=== PATIENT | female | born 1935 | race Caucasian/White ===

== ENCOUNTER 2022-04-21 07:56 | Emergency (ER) | payer MEDICARE, SELFPAY ==
--- NOTE | 2022-04-21 08:04 | DI.RAD.S_ITS ---
PROCEDURE: XR CHEST 1V INDICATIONS: fall TECHNIQUE: One view of the chest was acquired. COMPARISON: [facility], CR, XR HIP W PEL IF DONE LT 2V, 04/21/2022, 8:23. [facility], CT, CT HEAD/BRAIN WO CON, 04/21/2022, 8:16. FINDINGS: Surgical changes and devices: Right shoulder arthroplasty hardware is seen. Lungs and pleura: On this supine examination, no large pneumothorax or large pleural effusions are seen. No focal areas of lung consolidation are seen. Low lung volumes are noted. This causes a crowded appearance to the lung markings and limits evaluation. Mediastinum: Mediastinal contours appear normal. Heart size is normal. Atherosclerotic calcification of the aortic arch is noted. Bones and chest wall: No suspicious bony lesions. No displaced rib fracture can be seen. Age-appropriate bony degenerative changes are seen. Overlying soft tissues appear unremarkable. IMPRESSION: Limited portable chest examination, without a significant cardiopulmonary abnormality identified. No displaced fracture is seen on this single view study. Dictated by: Vincent Dia M.D. on 04/21/2022 at 8:48 Approved by: Vincent Dia M.D. on 04/21/2022 at 8:49
--- NOTE | 2022-04-21 08:04 | DI.CT.S_ITS ---
PROCEDURE: CT HEAD/BRAIN WO CON INDICATIONS: falling TECHNIQUE: Noncontrast 4.5 mm thick angled axial sections acquired from the foramen magnum to the vertex, with coronal and sagittal reformats. For radiation dose reduction, the following was used: automated exposure control, adjustment of mA and/or kV according to patient size. COMPARISON: None. FINDINGS: Image quality: Excellent. CSF spaces: Basal cisterns are patent. No extra-axial fluid collections. Ventricles are normal in size and shape. Brain: Moderate global cerebral volume loss and chronic microvascular ischemic changes. Skull and face: Right cochlear implant. Calvarium and visualized facial bones are intact, without suspicious lesions. Sinuses: Visualized sinuses and mastoids are clear. IMPRESSION: No acute intracranial abnormality. Dictated by: Mike Wood M.D. on 04/21/2022 at 8:31 Approved by: Mike Wood M.D. on 04/21/2022 at 8:35
--- NOTE | 2022-04-21 08:09 | ED_ITS ---
HPI - Fall General Chief Complaint: Fall Stated Complaint: GLF Time Seen by Provider: 04/21/22 08:01 History of Present Illness HPI Narrative: Patient is 86-year-old female extremely hard of hearing lives in a correction like situation. Apparently she fell this morning she fell last week as well. However today she is having left leg pain and shortening. She apparently has atrial fibrillation and takes aspirin. Staff members did not see her fall she is not able to provide any history. Related Data Allergies Allergy/AdvReac Type Severity Reaction Status Date / Time bee venom protein (honey bee) Allergy Verified 04/21/22 08:20 codeine Allergy Verified 04/21/22 08:20 Sulfa (Sulfonamide Allergy Verified 04/21/22 08:20 Antibiotics) Review of Systems Review of Systems Narrative: Unable to obtain Patient History Social History Smoking Status: Unknown if ever smoked Exam Initial Vital Signs Initial Vital Signs: Vital Signs Temperature 97.8 F 04/21/22 08:20 Pulse Rate 66 04/21/22 08:20 Respiratory Rate 18 04/21/22 08:20 Blood Pressure 159/70 H 04/21/22 08:20 Pulse Oximetry 92 04/21/22 08:20 Oxygen Delivery Method 04/21/22 08:20 GENERAL: Awake alert thin 86-year-old female HEENT: Head atraumatic,EOMI, pupils reactive, face symmetric, moist mucous membr anes NECK: Supple CARDIOVASCULAR: Systolic murmur regular rate RESPIRATORY: Breath sounds equal bilaterally, no wheezes rales or rhonchi. ABDOMEN: Soft, nontender. Normoactive bowel sounds all 4 quadrants. No guarding or rebound. EXTREMITIES: Normal range of motion, no clubbing or edema. Neurovascularly intact Left hip pain left leg is shortened distal pedal pulse is felt NEUROLOGICAL: Moving extremities SKIN: Multiple contusions all over specifically on her right hip Course Orders Ordered: ED Orders 04/21/22 09:25 BNP [NT-proBNP (BNP-Adult 18+)] Stat CBC Auto Diff [Complete Blood Count AUTO DIFF] Stat CMP [Comprehensive Metabolic Panel] Stat 04/21/22 10:35 CBC Auto Diff [Complete Blood Count AUTO DIFF] Stat PT [Prothrombin Time INR] Stat PTT [Partial Thromboplastin Time] Stat 04/21/22 10:40 UA Complete [Urinalysis and Microscopic] Stat 04/21/22 12:36 ABG [Arterial Blood Gas] Stat 04/21/22 13:04 COVID19 -Nasal RAPID/Pre-Proc Stat Discontinued Medications Acetaminophen (Acetaminophen 325 Mg Tablet) 650 mg PO NOW ONE Stop: 04/21/22 10:52 Last Admin: 04/21/22 11:12 Dose: 650 mg Documented By: BAIRON Potassium Chloride (Potassium Chloride 20 Meq/15 Ml Udc) 40 meq PO NOW ONE Stop: 04/21/22 09:58 Last Admin: 04/21/22 10:28 Dose: 40 meq Documented By: AMU Vital Signs Vital signs: Vital Signs - 8 hr 04/21/22 10:51 04/21/22 11:00 04/21/22 11:30 Pulse Rate 81 87 80 Pulse Oximetry 98 93 99 04/21/22 12:00 04/21/22 12:30 Pulse Rate 78 82 Pulse Oximetry 92 MDM - Fall Lab Data Result diagrams: 04/21/22 10:35 04/21/22 09:25 Labs: Lab Results 04/21/22 04/21/22 04/21/22 Range/Units 09:25 09:25 09:25 WBC 7.2 (4.5-11.0) X10^3/uL RBC 3.55 L (4.0-5.2) X10^6/uL Hgb 9.9 L (12.0-16.0) g/dL Hct 29.8 L (36-46) % MCV 84.1 (80-100) fL MCH 27.8 (26-34) PG MCHC 33.1 (30-36) % RDW 16.8 H (11.6-14.8) % Plt Count TNP Neut % (Auto) 76.5 H (50-75) % Lymph % (Auto) 16.4 L (25-40) % [place] % (Auto) 5.6 (3-14) % Eos % (Auto) 1.2 L (2-4) % Baso % (Auto) 0.3 (0-2) % Neut # (Auto) 5500 (1004-8294) /uL Lymph # (Auto) 1200 (6330-0823) /uL [place] # (Auto) 400 (0-900) /uL Eos # (Auto) 100 (0-450) /uL Baso # (Auto) 0 (0-100) /uL RBC Morphology See below Anisocytosis 1+ H PT (10.1-12.7) SECONDS INR (0.9-1.3) APTT (26.4-36.2) SECONDS Sodium 137 (137-145) mmol/L Potassium 2.9 L (3.4-5.1) mmol/L Chloride 100 (98-107) mmol/L Carbon Dioxide 30 (22-32) mmol/L BUN 55 H (7-17) mg/dL Creatinine 1.50 H (0.52-1.04) mg/dL Estimated GFR 34 L (>60) mL/min BUN/Creatinine Ratio 36.7 H (6-22) Glucose 82 (80-110) mg/dL Calcium 9.2 (8.4-10.2) mg/dL Total Bilirubin 0.8 (0.2-1.3) mg/dL AST 28 (14-36) IU/L ALT 10 (<35) IU/L Alkaline Phosphatase 82 (38-126) U/L NT-Pro-B Natriuret Pep 5270 H (<450) pg/mL Total Protein 7.2 (6.3-8.2) g/dL Albumin 4.1 (3.5-5.0) g/dL Globulin 3.1 (1.7-4.1) g/dL Albumin/Globulin Ratio 1.3 (1.0-2.8) Urine Color Urine Appearance Urine pH (4.5-8.0) Ur Specific [place] (1.000-1.035) Urine Protein (Negative) Urine Glucose (UA) (Negative) g/dL Urine Ketones (NEGATIVE) Urine Occult Blood (Negative) Urine Nitrate (Negative) Urine Bilirubin (NEGATIVE) Urine Urobilinogen (0.2) E.U./dL Ur Leukocyte Esterase (NEGATIVE) Urine RBC (0-5/HPF) Urine WBC (0-5/HPF) Ur Squamous Epith Cells (0-5/HPF) Urine Bacteria (None) Ur Culture Indicated? SARS-CoV-2 (PCR) (Negative) 04/21/22 04/21/22 04/21/22 Range/Units 10:35 10:35 10:40 WBC 6.3 (4.5-11.0) X10^3/uL RBC 3.32 L (4.0-5.2) X10^6/uL Hgb 9.3 L (12.0-16.0) g/dL Hct 28.2 L (36-46) % MCV 84.8 (80-100) fL MCH 28.1 (26-34) PG MCHC 33.2 (30-36) % RDW 16.6 H (11.6-14.8) % Plt Count 189 Neut % (Auto) 76.7 H (50-75) % Lymph % (Auto) 16.6 L (25-40) % [place] % (Auto) 5.0 (3-14) % Eos % (Auto) 1.4 L (2-4) % Baso % (Auto) 0.3 (0-2) % Neut # (Auto) 4800 (4854-3800) /uL Lymph # (Auto) 1000 L (6485-7600) /uL [place] # (Auto) 300 (0-900) /uL Eos # (Auto) 100 (0-450) /uL Baso # (Auto) 0 (0-100) /uL RBC Morphology Anisocytosis PT 13.8 H (10.1-12.7) SECONDS INR 1.2 (0.9-1.3) APTT 33 (26.4-36.2) SECONDS Sodium (137-145) mmol/L Potassium (3.4-5.1) mmol/L Chloride (98-107) mmol/L Carbon Dioxide (22-32) mmol/L BUN (7-17) mg/dL Creatinine (0.52-1.04) mg/dL Estimated GFR (>60) mL/min BUN/Creatinine Ratio (6-22) Glucose (80-110) mg/dL Calcium (8.4-10.2) mg/dL Total Bilirubin (0.2-1.3) mg/dL AST (14-36) IU/L ALT (<35) IU/L Alkaline Phosphatase (38-126) U/L NT-Pro-B Natriuret Pep (<450) pg/mL Total Protein (6.3-8.2) g/dL Albumin (3.5-5.0) g/dL Globulin (1.7-4.1) g/dL Albumin/Globulin Ratio (1.0-2.8) Urine Color Yellow Urine Appearance Clear Urine pH 6.5 (4.5-8.0) Ur Specific [place] <=1.005 (1.000-1.035) Urine Protein Negative (Negative) Urine Glucose (UA) Negative (Negative) g/dL Urine Ketones Negative (NEGATIVE) Urine Occult Blood Negative (Negative) Urine Nitrate Negative (Negative) Urine Bilirubin Negative (NEGATIVE) Urine Urobilinogen 0.2 (0.2) E.U./dL Ur Leukocyte Esterase Negative (NEGATIVE) Urine RBC 0-1/hpf (0-5/HPF) Urine WBC 0-1/hpf (0-5/HPF) Ur Squamous Epith Cells 1-5 /hpf (0-5/HPF) Urine Bacteria None seen (None) Ur Culture Indicated? Cult not indicated SARS-CoV-2 (PCR) (Negative) 04/21/22 Range/Units 13:04 WBC (4.5-11.0) X10^3/uL RBC (4.0-5.2) X10^6/uL Hgb (12.0-16.0) g/dL Hct (36-46) % MCV (80-100) fL MCH (26-34) PG MCHC (30-36) % RDW (11.6-14.8) % Plt Count Neut % (Auto) (50-75) % Lymph % (Auto) (25-40) % [place] % (Auto) (3-14) % Eos % (Auto) (2-4) % Baso % (Auto) (0-2) % Neut # (Auto) (5155-9594) /uL Lymph # (Auto) (3728-3665) /uL [place] # (Auto) (0-900) /uL Eos # (Auto) (0-450) /uL Baso # (Auto) (0-100) /uL RBC Morphology Anisocytosis PT (10.1-12.7) SECONDS INR (0.9-1.3) APTT (26.4-36.2) SECONDS Sodium (137-145) mmol/L Potassium (3.4-5.1) mmol/L Chloride (98-107) mmol/L Carbon Dioxide (22-32) mmol/L BUN (7-17) mg/dL Creatinine (0.52-1.04) mg/dL Estimated GFR (>60) mL/min BUN/Creatinine Ratio (6-22) Glucose (80-110) mg/dL Calcium (8.4-10.2) mg/dL Total Bilirubin (0.2-1.3) mg/dL AST (14-36) IU/L ALT (<35) IU/L Alkaline Phosphatase (38-126) U/L NT-Pro-B Natriuret Pep (<450) pg/mL Total Protein (6.3-8.2) g/dL Albumin (3.5-5.0) g/dL Globulin (1.7-4.1) g/dL Albumin/Globulin Ratio (1.0-2.8) Urine Color Urine Appearance Urine pH (4.5-8.0) Ur Specific [place] (1.000-1.035) Urine Protein (Negative) Urine Glucose (UA) (Negative) g/dL Urine Ketones (NEGATIVE) Urine Occult Blood (Negative) Urine Nitrate (Negative) Urine Bilirubin (NEGATIVE) Urine Urobilinogen (0.2) E.U./dL Ur Leukocyte Esterase (NEGATIVE) Urine RBC (0-5/HPF) Urine WBC (0-5/HPF) Ur Squamous Epith Cells (0-5/HPF) Urine Bacteria (None) Ur Culture Indicated? SARS-CoV-2 (PCR) Negative (Negative) Imaging Data CT scan - head: Radiologist's Impression: CT Scan Report Signed Patient: Ragini Tolentino MR#: [id number] : 1935 Acct:[id number] Age/Sex: 86 / F Date of Service: 04/21/22 Loc: ED Accession Number: [id number] ?? Procedure: CT head/brain wo con Ordering Provider: Cinthia Bustamante D.O. PROCEDURE:? CT HEAD/BRAIN WO CON ? INDICATIONS:? falling ? TECHNIQUE:? Noncontrast 4.5 mm thick angled axial sections acquired from the foramen magnum to the vertex, with coronal and sagittal reformats.? For radiation dose reduction, the following was used:? automated exposure control, adjustment of mA and/or kV according to patient size.? ? COMPARISON:? None. ? FINDINGS:? Image quality:? Excellent.? ? CSF spaces:? Basal cisterns are patent.? No extra-axial fluid collections.? Ventricles are normal in size and shape.? ? Brain:? Moderate global cerebral volume loss and chronic microvascular ischemic changes. ? Skull and face:? Right cochlear implant. Calvarium and visualized facial bones are intact, without suspicious lesions.? ? Sinuses:? Visualized sinuses and mastoids are clear.? ? IMPRESSION:? No acute intracranial abnormality. ? ? Dictated by: Mike Wood M.D. on 04/21/2022 at 8:31 ? Chest x-ray: Radiologist's Impression: CT Scan Report Signed Patient: Ragini Tolentino MR#: [id number] : 1935 Acct:[id number] Age/Sex: 86 / F Date of Service: 04/21/22 Loc: ED Accession Number: [id number] ?? Procedure: CT head/brain wo con Ordering Provider: Cinthia Bustamante D.O. PROCEDURE:? CT HEAD/BRAIN WO CON ? INDICATIONS:? falling ? TECHNIQUE:? Noncontrast 4.5 mm thick angled axial sections acquired from the foramen magnum to the vertex, with coronal and sagittal reformats.? For radiation dose reduction, the following was used:? automated exposure control, adjustment of mA and/or kV according to patient size.? ? COMPARISON:? None. ? FINDINGS:? Image quality:? Excellent.? ? CSF spaces:? Basal cisterns are patent.? No extra-axial fluid collections.? Ventricles are normal in size and shape.? ? Brain:? Moderate global cerebral volume loss and chronic microvascular ischemic changes. ? Skull and face:? Right cochlear implant. Calvarium and visualized facial bones are intact, without suspicious lesions.? ? Sinuses:? Visualized sinuses and mastoids are clear.? ? IMPRESSION:? No acute intracranial abnormality. ? ? Dictated by: Mike Wood M.D. on 04/21/2022 at 8:31 ? Extremity x-ray #1: Radiologist's Impression: XRay Report Signed Patient: Ragini Tolentino MR#: [id number] : 1935 Acct:[id number] Age/Sex: 86 / F Date of Service: 04/21/22 Loc: ED Accession Number: [id number] ?? Procedure: XR hip w pel if done LT 2V Ordering Provider: Cinthia Bustamante D.O. PROCEDURE:? XR HIP W PEL IF DONE LT 2V ? INDICATIONS:? fall ? TECHNIQUE:? AP pelvis with lateral view(s) of the left hip(s).? ? COMPARISON:? [facility], CR, XR CHEST 1V, 04/21/2022, 8:23.? [facility], CT, CT HEAD/BRAIN WO CON, 04/21/2022, 8:16. ? FINDINGS:? ? Bones:? No fractures or dislocations.? Pelvic ring appears intact.? No reagan picious bony lesions.? ? Degenerative changes are seen throughout. Note is made of osteitis pubis, which is not considered to be frankly abnormal in a woman of this age.? ? Soft tissues:? The visualized bowel gas pattern is normal.? No suspicious soft tissue calcifications.? ? ? IMPRESSION:? No displaced fracture is seen on this plain film study. ? If there is point tenderness (or other clinical suspicion for a fracture not seen on these images) please consider a dedicated CT for further evaluation. ? Dictated by: Vicnent Dia M.D. on 04/21/2022 at 8:47 ? ? MDM Narrative Medical decision making narrative: Patient does not have fracture hip she is mildly hypokalemic which is replaced orally. She has started yelling and becoming a agitated and more with it. Initially her platelets were not performed and she has extensive bruising. She started waking up screaming more seems to be in pain although she was able to weightbear and get to a commode. She urinated over 1200 out on the commode over filled. Records from [facility] have been received and reviewed she was there on 04/05/2022 where they did prajapati scan she had head, neck, lumbar spine chest. She has severe dementia and apparently takes Xarelto At this time does not meet criteria for admission and can be released back to her all. Patient is noted to be mildly hypoxic. But in no sort of respiratory distress. Nail [place] has been removed from her fingernails O2 is about 90%, chest x-ray is clear Discharge Plan Departure Patient Disposition: Home Clinical Impression: Acute hypokalemia, Contusion Instructions: How to Prevent Falls Activity Restrictions/Additional Instructions: *You have been diagnosed with frequent falls *What to do: Potassium was mildly low she was given potassium in the ED. CT scans and blood work are reassuring Have potassium and electrolytes recheck later this week with PCP She has fallen twice now and is certainly high risk for intracranial hemorrhage. Xarelto is no longer indicated *Continue to take medications as directed STOP TAKING XARELTO *Follow up with your primary care provider in 2-3 days or call [phone] *Return to ER if you should have increasing confusion, injury from fall or any new, worsening or concerning symptoms Visit Report Forms: Patient Portal/API
--- NOTE | 2022-04-21 08:10 | DI.RAD.S_ITS ---
PROCEDURE: XR HIP W PEL IF DONE LT 2V INDICATIONS: fall TECHNIQUE: AP pelvis with lateral view(s) of the left hip(s). COMPARISON: [facility], CR, XR CHEST 1V, 04/21/2022, 8:23. [facility], CT, CT HEAD/BRAIN WO CON, 04/21/2022, 8:16. FINDINGS: Bones: No fractures or dislocations. Pelvic ring appears intact. No suspicious bony lesions. Degenerative changes are seen throughout. Note is made of osteitis pubis, which is not considered to be frankly abnormal in a woman of this age. Soft tissues: The visualized bowel gas pattern is normal. No suspicious soft tissue calcifications. IMPRESSION: No displaced fracture is seen on this plain film study. If there is point tenderness (or other clinical suspicion for a fracture not seen on these images) please consider a dedicated CT for further evaluation. Dictated by: Vincent Dia M.D. on 04/21/2022 at 8:47 Approved by: Vincent Dia M.D. on 04/21/2022 at 8:48
[2022-04-21 08:20] VITALS: BP 159/70; PULSE 66; RESP 18; TEMP 36.6; O2SAT 92
[2022-04-21 09:38] LABS: Basophils Absolute Auto 0 /uL (0-100); Basophils Percent Auto 0.3 % (0-2); Eosinophils Absolute Auto 100 /uL (0-450); Eosinophils Percent Auto 1.2 % (2-4); Hematocrit 29.8 % (36-46); Hemoglobin 9.9 g/dL (12.0-16.0); Lymphocytes Absolute Auto 1200 /uL (1100-4500); Lymphocytes Percent Auto 16.4 % (25-40); Mean Corpuscular HGB Conc 33.1 % (30-36); Mean Corpuscular Hemoglobin 27.8 PG (26-34); Mean Corpuscular Volume 84.1 fL (80-100); Monocytes Absolute Auto 400 /uL (0-900); Monocytes Percent Auto 5.6 % (3-14); Neutrophils Absolute Auto 5500 /uL (1500-7000); Neutrophils Percent Auto 76.5 % (50-75); Red Blood Cell Count 3.55 X10^6/uL (4.0-5.2); Red Cell Distribution Width 16.8 % (11.6-14.8); White Blood Cell Count 7.2 X10^3/uL (4.5-11.0)
[2022-04-21 09:40] LABS: Add Manual Diff / Slide Review SLIDE REVIEW
[2022-04-21 09:47] LABS: Alanine Aminotransferase 10 IU/L (<35); Albumin 4.1 g/dL (3.5-5.0); Albumin Globulin Ratio 1.3 (1.0-2.8); Alkaline Phosphatase 82 U/L (38-126); Aspartate Aminotransferase 28 IU/L (14-36); BUN Creatinine Ratio 36.7 (6-22); Bilirubin Total 0.8 mg/dL (0.2-1.3); Blood Urea Nitrogen 55 mg/dL (7-17); Calcium 9.2 mg/dL (8.4-10.2); Carbon Dioxide 30 mmol/L (22-32); Chloride 100 mmol/L (98-107); Estimated Glomerular Filt Rate 34 mL/min (>60); Globulin 3.1 g/dL (1.7-4.1); Glucose 82 mg/dL (80-110); HEMOLYSIS < 15 (0-50); Potassium 2.9 mmol/L (3.4-5.1); Sodium 137 mmol/L (137-145); Total Protein 7.2 g/dL (6.3-8.2)
[2022-04-21 10:04] LABS: Anisocytosis 1+
[2022-04-21] MEDS: POTASSIUM CHLORIDE 20 MEQ/15 ML UDC 40 MEQ PO (10:28)
[2022-04-21 10:51] VITALS: PULSE 81; O2SAT 98
[2022-04-21 10:55] LABS: Add Manual Diff / Slide Review NO; Basophils Absolute Auto 0 /uL (0-100); Basophils Percent Auto 0.3 % (0-2); Eosinophils Absolute Auto 100 /uL (0-450); Eosinophils Percent Auto 1.4 % (2-4); Hematocrit 28.2 % (36-46); Hemoglobin 9.3 g/dL (12.0-16.0); Lymphocytes Absolute Auto 1000 /uL (1100-4500); Lymphocytes Percent Auto 16.6 % (25-40); Mean Corpuscular HGB Conc 33.2 % (30-36); Mean Corpuscular Hemoglobin 28.1 PG (26-34); Mean Corpuscular Volume 84.8 fL (80-100); Monocytes Absolute Auto 300 /uL (0-900); Neutrophils Absolute Auto 4800 /uL (1500-7000); Neutrophils Percent Auto 76.7 % (50-75); Platelet Count 189 X10^3/uL (150-400); Red Blood Cell Count 3.32 X10^6/uL (4.0-5.2); Red Cell Distribution Width 16.6 % (11.6-14.8); White Blood Cell Count 6.3 X10^3/uL (4.5-11.0)
[2022-04-21 11:00] VITALS: PULSE 87; O2SAT 93
[2022-04-21 11:08] LABS: Appearance Urine UA CLEAR; Bilirubin Urine UA NEGATIVE (NEGATIVE); Color Urine UA YELLOW; Glucose Urine UA NEGATIVE (Negative); Ketones Urine UA NEGATIVE (NEGATIVE); Leukocyte Esterase Urine UA NEGATIVE (NEGATIVE); Nitrite Urine UA NEGATIVE (Negative); Occult Blood Urine UA NEGATIVE (Negative); Protein Urine UA NEGATIVE (Negative); Specific Gravity Urine UA <=1.005 (1.000-1.035); Urobilinogen Urine UA 0.2 E.U./dL (0.2)
[2022-04-21] MEDS: ACETAMINOPHEN 325 MG TABLET 650 MG PO (11:12)
[2022-04-21 11:17] LABS: INR 1.2 (0.9-1.3); Prothrombin Time 13.8 SECONDS (10.1-12.7)
[2022-04-21 11:18] LABS: Bacteria Urine None Seen; Culture Indicated Urine Cult Not Indicated; RBC Urine 0-1/HPF (0-5/HPF); Squamous Epithelial Cell Urine 1-5 /HPF (0-5/HPF); WBC Urine 0-1/HPF (0-5/HPF); pH Urine UA 6.5 (4.5-8.0)
[2022-04-21 11:19] LABS: PTT Partial Thromboplastin Tim 33 SECONDS (26.4-36.2)
[2022-04-21 11:30] VITALS: PULSE 80; O2SAT 99
[2022-04-21 12:00] VITALS: PULSE 78; O2SAT 92
[2022-04-21 12:30] VITALS: PULSE 82
[2022-04-21 13:11] LABS: NT-proBNP (BNP-Adult 18+) 5270 pg/mL (<450)
--- NOTE | 2022-04-21 13:13 | PC.NURSE ---
Addendum entered by Deborah Zuniga R.N. 04/21/22 13:14: Pt pulled out IV per GARETH Mendez. Original Note: Pt refusing vital signs and ABG. Provider aware.
[2022-04-21 13:33] LABS: COVID19 -Nasal RAPID Negative (Negative)
== END 2022-04-21 13:04 | disposition home or self-care (01) ==
PROVIDERS: Emergency Provider Emergency Medicine
DX: E87.6 Hypokalemia (principal); S80.12XA Contusion of left lower leg, initial encounter; W19.XXXA Unspecified fall, initial encounter; Z20.822 Contact with and (suspected) exposure to COVID-19
CPT/HCPCS: 36415; 70450; 71045; 73502; 80053; 81001; 83880; 85025; 85610; 85730; 87635; 99283; 99284; C9803